=== PATIENT | female | born 1955 | race American Indian/Alaskan Native ===

== ENCOUNTER 2018-06-29 09:32 | Outpatient (CLI) | payer BC ==
[2018-06-29 11:44] LABS: Blood Urea Nitrogen 10 mg/dL (7-17)
--- NOTE | 2018-06-29 18:11 | Cat Scan Report ---
FINAL REPORT PROCEDURE: CT chest with contrast. TECHNIQUE: Computerized axial tomography of the chest was performed during the IV injection of iodin ated nonionic contrast. HISTORY: Malignant (primary) neoplasm, unspecified COMPARISON: No prior studies are available for comparison. TECHNICAL QUALITY: Satisfactory. FINDINGS: The trachea and central bronchi appear normal. The right lung is clear and well expanded. There is a small peripheral nodule located laterally in the left upper lobe. This is seen on images 52 and 53 of series 2. This small nodule is not calcified and measures approximately 5.6 millimeters in diameter. It is not highly suspicious, but is an indeterminate nodule. Follow-up scanning to help document res olution or stability is recommended. The left lung is otherwise clear. There are no pleural effusions . The thoracic aorta has a normal caliber without evidence of dissection. There is mild atherosclerot ic calcification in the aortic arch. The central pulmonary arteries enhance normally. There is no med iastinal adenopathy. The heart size is normal. The adrenal glands are not enlarged. The thoracic skel eton appears intact. IMPRESSION: Small indeterminate nodule in the left upper lobe as discussed above.
== END 2018-06-29 09:33 | disposition home or self-care (01) ==
LOC: CT 09:32
PROVIDERS: ATTEND Internal Medicine Hematology & Oncology
DX: R91.1 Solitary pulmonary nodule (principal); I11.0 Hypertensive heart disease with heart failure; I50.30 Unspecified diastolic (congestive) heart failure
CPT/HCPCS: 36415; 71260; 82565; 84520; 93306; Q9967

== ENCOUNTER 2019-07-13 09:01 | Outpatient (CLI) | payer BC, MEDICARE ==
[2019-07-13 10:14] LABS: Blood Urea Nitrogen 11 mg/dL (7-17)
--- NOTE | 2019-07-13 11:46 | Cat Scan Report ---
CT CHEST WITH CONTRAST HISTORY: History of left breast cancer. A old 06/29/2018 COMPARISON: None. TECHNIQUE: Routine CT images of the chest were obtained following the administration of intravenous c ontrast. Note: All CT scans at this location are performed using CT dose reduction employed for ALARA by means of automated exposure control. CONTRAST: 100 ml of Omnipaque 300. FINDINGS: Heart and Pericardium: No significant abnormality. Vasculature: No significant abnormality. Lymphatics: No lymphadenopathy. Lungs: No pulmonary nodule or mass. No pleural effusion. Trachea and Bronchi: No significant abnormality. Osseous Structures: No suspicious bone lesion. Additional Findings: Status post left partial mastectomy with upper outer postsurgical scar and moder ate skin thickening of the breast. IMPRESSION: 1. No evidence of metastasis. Signer Name: Sim Treviño MD Signed: 07/13/2019 11:42 AM Workstation Name: [id number]
--- NOTE | 2019-07-13 11:50 | Cat Scan Report ---
CT ABDOMEN AND PELVIS CONTRAST HISTORY: History of left breast cancer. COMPARISON: No relevant comparative imaging. TECHNIQUE: Routine abdominal and pelvic CT exam performed following intravenous contrast administrat ion.. All CT scans at this location are performed using CT dose reduction for ALARA by means of autom ated exposure control. FINDINGS: CT ABDOMEN: Lung Bases: No significant abnormality. Liver: No significant abnormality. Biliary: No significant abnormality. Spleen: No significant abnormality. Unenlarged. Pancreas: No significant abnormality. Adrenals: No significant abnormality. Kidneys: No significant abnormality. Lymphatics: No lymphadenopathy. Vasculature: No significant abnormality. Bowel/Peritoneum: Nonobstructive bowel pattern. Diverticulosis without mesocolonic fat stranding. No free air. No free fluid. Normal appendix. CT PELVIC: : Normal uterus and ovaries. No adnexal mass or free fluid. Lymphatics: No lymphadenopathy. Osseous Structures: No aggressive appearing osseous lesions. Additional Findings: Normal rectum. IMPRESSION: 1. Negative study with no evidence of metastasis. 2. Diverticulosis but no signs of diverticulitis. Signer Name: Sim Treviño MD Signed: 07/13/2019 11:46 AM Workstation Name: [id number]
== END 2019-07-13 09:02 | disposition home or self-care (01) ==
LOC: CT 09:01
PROVIDERS: ATTEND Internal Medicine Hematology & Oncology
DX: C50.912 Malignant neoplasm of unspecified site of left female breast (principal); K57.30 Diverticulosis of large intestine without perforation or abscess without bleeding
CPT/HCPCS: 36415; 71260; 74177; 82565; 84520; Q9967